=== PATIENT | male | born 1980 | race Hispanic/Latino ===

== ENCOUNTER 2018-01-17 18:06 | Emergency (ER) | payer MEDICAID ==
[2018-01-17 18:36] VITALS: RESP 16
[2018-01-17] MEDS ORDERED: Lidocaine 5% Patch TD STA (19:04)
--- NOTE | 2018-01-17 19:39 | ED PDOC ---
HPI: Back Time Seen by Provider: 01/17/18 18:47 Chief Complaint (Nursing): Back Pain Chief Complaint (Provider): Right Flank Pain History Per: Patient History/Exam Limitations: no limitations Onset/Duration Of Symptoms: Hrs (earlier today) Current Symptoms Are (Timing): Still Present Additional Complaint(s): 37 year old male presents to the ED for evaluation of right flank pain onset earlier today. Patient states that he twisted to his right and felt pain in his right flank area, worse with movement but not to touch. He reports mild improvement of pain with his hands above his head. Otherwise, denies blunt trauma, hematuria, dysuria, incontinence, abdominal pain, and hx of kidney stones. PMD: [facility] Past Medical History Reviewed: Historical Data, Nursing Documentation, Vital Signs Vital Signs: Last Vital Signs Temp 98.8 F 01/17/18 18:34 Pulse 94 H 01/17/18 18:34 Resp 16 01/17/18 18:34 BP 164/101 H 01/17/18 18:34 Pulse Ox 97 01/17/18 18:34 - Medical History PMH: Back Problems (sciatica), HTN - Surgical History Surgical History: Cholecystectomy - Family History Family History: States: Unknown Family Hx - Immunization History Hx Tetanus Toxoid Vaccination: No Hx Influenza Vaccination: No Hx Pneumococcal Vaccination: No - Home Medications Home Medications: Ambulatory Orders Medication Instructions Recorded Ibuprofen [Motrin] 600 mg PO Q8 PRN #6 tab 10/21/14 diaZEpam [Valium] 5 mg PO BID PRN #6 tab 10/21/14 oxyCODONE/Acetaminophen [Percocet 1 ea PO BID PRN #8 tab 10/21/14 5/325 mg Tab] Cyclobenzaprine [Cyclobenzaprine 10 mg PO TID PRN #15 tab 08/26/15 HCl] Naproxen [Naprosyn] 500 mg PO BID PRN #15 tablet 08/26/15 Indomethacin [Indocin] 50 mg PO TID #12 cap 09/03/17 oxyCODONE/Acetaminophen [Percocet 1 ea PO TID PRN #8 tab 09/03/17 5/325 mg Tab] Diazepam [Valium] 10 mg PO BID PRN #10 tablet 01/17/18 Meloxicam [Mobic] 15 mg PO DAILY PRN #10 tab 01/17/18 - Allergies Allergies/Adverse Reactions: Allergies Allergy/AdvReac Type Severity Reaction Status Date / Time No Known Allergies Allergy Verified 01/17/18 18:34 Review of Systems ROS Statement: Except As Marked, All Systems Reviewed And Found Negative Gastrointestinal: Negative for: Abdominal Pain Genitourinary Male: Negative for: Dysuria, Incontinence, Hematuria Musculoskeletal: Positive for: Other (right flank pain) Physical Exam - Reviewed Nursing Documentation Reviewed: Yes Vital Signs Reviewed: Yes - Physical Exam Appears: Positive for: Uncomfortable, In Acute Distress (moderate painful) Skin: Positive for: Normal Color. Negative for: Rash Cardiovascular/Chest: Positive for: Regular Rate, Rhythm Respiratory: Positive for: Normal Breath Sounds. Negative for: Respiratory Distress Gastrointestinal/Abdominal: Positive for: Normal Exam, Soft. Negative for: Tenderness Back: Positive for: Normal Inspection. Negative for: L CVA Tenderness, R CVA Tenderness, Vertebral Tenderness Neurologic/Psych: Positive for: Alert, Oriented (x3) - Laboratory Results Result Diagrams: 01/17/18 19:50 01/17/18 19:50 Urine dip results: Positive for: Blood (moderate amounts). Negative for: Le ukocyte Esterase, Nitrate - ECG O2 Sat by Pulse Oximetry: 97 (RA) Pulse Ox Interpretation: Normal Medical Decision Making Medical Decision Making: Time: 1903 Initial Impression: right flank pain, r/o kidney stones Initial Plan: --CMP --U-dip --CBC with differential --Morphine 4mg IVP --Morphine 6mg IVP --Zofran 4mg IVP --Toradol 60mg IVP --Urinalysis --CT abd / pelvis 1951 CT Abd/Pelvis Impression: -Fatty liver. -3 cm hypodense right hepatic lobe lesion is seen which appears grossly stable compared to prior study, most consistent with a hemangioma. - fat containing right and left inguinal hernias are seen. -Incidental note is made of a left iliopsoas fluid collection containing air bubbles may represent infected bursitis. MRI Left Hip and consultation with o rthopedic surgery services is recommended. 2114 CT results discussed with Dr. Tinajero who states patient does not require emergent MRI and can follow up in his office. Pt. informed of CT results. Reports complete relief of pain. Denies L hip pain. No L hip/pelvic tenderness. Advised to f/u with Dr. Tinajero regarding findings on L hip on CT and to f/u with [facility] for evaluation of hepatic hemangioma. Pt. verbalized understanding of necessary f/u. Scribe Attestation: Documented by Marsha Perez, acting as a scribe for Gio Calderon PA-C Provider Scribe Attestation: All medical record entries made by the Scribe were at my direction and personally dictated by me. I have reviewed the chart and agree that the record accurately reflects my personal performance of the history, physical exam, medical decision making, and the department course for this patient. I have also personally directed, reviewed, and agree with the discharge instructions and disposition. Disposition - Clinical Impression Clinical Impression: Hepatic hemangioma, Low back pain, Hip bursitis - Patient ED Disposition Is Patient to be Admitted: No - Disposition Referrals: [facility] [Outside] [facility], [facility] [Outside] Danilo Tinajero MD [Medical Doctor] - Disposition: Routine/Home Disposition Time: 21:15 Condition: IMPROVED Additional Instructions: FOLLOW UP WITH DR. TINAJERO (ORTHOPEDIST) FOR FURTHER EVALUATION OF HIP BURSITIS FOLLOW UP WITH [facility] REGARDING YOUR LIVER THANH SULLIVAN, thank you for letting us take care of you today. Your provider was Clark Villegas MD and you were treated for BACK PAIN. The emergency medical care you received today was directed at your acute symptoms. If you were prescribed any medication, please fill it and take as directed. It may take several days for your symptoms to resolve. Return to the Emergency Department if your symptoms worsen, do not improve, or if you have any other problems. Please contact your doctor or call one of the physicians/clinics you have been referred to that are listed on the Patient Visit Information form that is included in your discharge packet. Bring any paperwork you were given at discharge with you along with any medications you are taking to your follow up visit. Our treatment cannot replace ongoing medical care by a primary care provider outside of the emergency department. Thank you for allowing the [facility] team to be part of your care today. If you had an X-Ray or CT scan: A Radiologist will review the ED reading if any change in treatment is needed we will contact you. If you had a blood, urine, or wound culture: It will take several days for the r esults, if any change in treatment is needed we will contact you. If you had an STI test: It will take 48 hours for the results. Please call after 1 week if you have not heard back. Prescriptions: Diazepam [Valium] 10 mg PO BID PRN #10 tablet PRN Reason: Muscle Spasm Meloxicam [Mobic] 15 mg PO DAILY PRN #10 tab PRN Reason: Pain Instructions: Low Back Pain (DC), Hip Bursitis, Liver Hemangioma Forms: [employer] (Bur[place]ian) Print Language: TELUGU
[2018-01-17] MEDS ORDERED: Sodium Chloride 0.9% 1,000 ML IV STA (19:43)
[2018-01-17 20:14] LABS: BLOOD UREA NITROGEN 17 mg/dl (9-20); CALCIUM 9.4 mg/dL (8.4-10.2); GFR NON-AFRICAN AMERICAN > 60
[2018-01-17 20:22] LABS: ALBUMIN 4.1 g/dL (3.5-5.0); ALT/SGPT 47 U/L (21-72); AST/SGOT 49 U/L (17-59); BASO # 0.1 K/uL (0.0-0.2); BASO % 1.1 % (0.0-2.0); EOS # 0.4 K/uL (0.0-0.7); EOS % 3.9 % (0.0-4.0); HEMOGLOBIN 15.2 g/dL (12.0-18.0); LYMPH # 2.8 K/uL (1.0-4.3); LYMPH % 30.4 % (20.0-40.0); MEAN CELL VOLUME 99.4 fl (80.0-94.0); MEAN CORPUSCULAR HEMOGLOBIN 34.8 pg (27.0-31.0); MEAN PLATELET VOLUME 8.1 fl (7.2-11.7); MONO # 0.8 K/uL (0.0-0.8); MONO % 8.7 % (0.0-10.0); NEUT # 5.2 K/uL (1.8-7.0); NEUT % 55.9 % (50.0-75.0); NRBC % 0.6 % (0.0-0.0); RBC 4.35 Mil/uL (4.40-5.90); RED CELL DISTRIBUTION WIDTH 12.8 % (11.5-14.5); WHITE BLOOD COUNT 9.3 K/uL (4.8-10.8)
[2018-01-17 20:31] LABS: SQUAMOUS EPITHIAL < 1 /hpf (0-5); URINE AMORPHOUS SEDIMENT OCC /ul (<OCC); URINE BACTERIA RARE (<OCC); URINE BILIRUBIN NEGATIVE (NEGATIVE); URINE BLOOD MODERATE (NEGATIVE); URINE CLARITY CLOUDY (Clear); URINE COLOR YELLOW (YELLOW); URINE GLUCOSE (UA) NEG (Normal); URINE LEUKOCYTE ESTERASE NEG Leu/uL (Negative); URINE PROTEIN NEGATIVE (NEGATIVE); URINE UROBILINOGEN 0.2-1.0 mg/dL (0.2-1.0)
[2018-01-17 21:21] VITALS: BP 138/80; PULSE 64; TEMP 98.1
[2018-01-17 21:22] VITALS: O2SAT 97
--- NOTE | 2018-01-18 12:35 | CT ---
Date of service: 01/17/2018 PROCEDURE: CT Abdomen and Pelvis without intravenous contrast HISTORY: R flank pain; hematuria COMPARISON: CT scan of the abdomen pelvis dated 01/11/2013 TECHNIQUE: Contiguous images were obtained from the domes of the diaphragms to the upper thighs without the administration of intravenous contrast. Oral contrast was not administered. Radiation dose: Total exam DLP = 947.6 mGy-cm. This CT exam was performed using one or more of the following dose reduction techniques: Automated exposure control, adjustment of the mA and/or kV according to patient size, and/or use of iterative reconstruction technique. FINDINGS: LOWER THORAX: Unremarkable. LIVER: Nonspecific 3.7 x 3.2 cm hypoattenuating structure with central density that is isodense to liver parenchyma. No gross lesion or ductal dilatation. GALLBLADDER AND BILE DUCTS: Prior cholecystectomy with surgical clips in place. PANCREAS: Unremarkable. No gross lesion or ductal dilatation. SPLEEN: Unremarkable. ADRENALS: Unremarkable. No mass. KIDNEYS AND URETERS: Unremarkable. No hydronephrosis. No solid mass. VASCULATURE: Unremarkable. No aortic aneurysm. BOWEL: Small hiatal hernia. Colonic diverticulosis. No obstruction. No gross mural thickening. APPENDIX: Unremarkable. Normal appendix. PERITONEUM: Small bilateral fat containing inguinal hernias. No free fluid. No free air. LYMPH NODES: Unremarkable. No enlarged lymph nodes. BLADDER: Unremarkable. REPRODUCTIVE: Unremarkable. BONES: No acute fracture. Mild bilateral hip joint space narrowing with osteophytosis and subchondral cyst formation. OTHER FINDINGS: 4.5 x 2.7 cm left distended iliopsoas bursa containing foci of air. IMPRESSION: No urolithiasis or evidence of recently passed genitourinary calculus. 4.5 x 2.7 cm left distended iliopsoas bursa containing foci of air. While this may be related to arthritic changes, infected bursitis could have a similar appearance of the appropriate clinical setting. Clinical correlation is recommended. Nonspecific 3.7 cm right hepatic lobe heterogeneous structure. It would be difficult to definitively classify this structure has a hemangioma based on current and single-phase prior imaging. Contrast-enhanced MRI of the liver can be obtained for further evaluation as clinically warranted. Hip dated for findings and recommendations were submitted electronically.
== END 2018-01-17 21:25 | disposition home or self-care (01) ==
LOC: H.ER 18:06
DX: D18.09 Hemangioma of other sites (principal); M70.61 Trochanteric bursitis, right hip; M54.5 Low back pain
CPT/HCPCS: 74176; 80053; 81003; 85025; 96372; 96374; 96375; 99283; J1885; J2270; J2405; J7030